=== PATIENT | male | born 1955 | race Caucasian/White ===

== ENCOUNTER 2018-05-26 06:17 | Day surgery (SDC) | payer OTHER ==
[2018-05-25 15:00] LABS: #Eosinphils 0.6 thou/uL (0.0-0.7); #Lymphocytes 2.1 thou/uL (1.20-3.40); #Monocytes 0.9 thou/uL (0.11-0.59); #Neutrophils 4.1 thou/uL (1.40-6.50); %Eosinophils 7.7 % (0.0-10.0); %Lymphocytes 27.3 % (21.0-51.0); %Monocytes 11.8 % (0.0-10.0); %Neutrophils 53.2 % (42.0-75.0); Hemoglobin 13.7 g/dL (14.0-18.0); Mean Corpuscular HGB CONC 34.8 g/dL (32.0-36.0); Mean Corpuscular Hemoglobin 31.4 pg (27.0-31.0); Mean Corpuscular Volume 90.2 fL (78.0-98.0); Mean Platelet Volume 7.6 fL (7.4-10.4); Platelet Count 235 thou/uL (130-400); RBC Distribution Width 11.3 % (11.5-14.5); Red Blood Cell (RBC) Count 4.38 mill/uL (4.70-6.10); White Blood Cell (WBC) Count 7.7 thou/uL (4.8-10.8)
[2018-05-25 15:18] LABS: Anion Gap 10 mmol/L (10-20); BUN (Urea Nitrogen) 15 mg/dL (8.4-25.7); Calc. Creatinine Clearance 0 mL/min (70-130); Calcium 9.9 mg/dL (7.8-10.44); Carbon Dioxide 29 mmol/L (23-31); Chloride 107 mmol/L (98-107); Estimated GFR-MDRD 71; Glucose 129 mg/dL (80-115); Potassium 4.2 mmol/L (3.5-5.1); Sodium 142 mmol/L (136-145)
[2018-05-26] MEDS ORDERED: Fentanyl 100 MCG/2 ML VIAL ONE ×2 (06:34→07:09)
[2018-05-26] MEDS ORDERED: Midazolam HCl 2 mg/2 ml Vial ONE ×2 (06:34→07:09)
[2018-05-26] MEDS ORDERED: Bupivacaine/Epinephrine 0.25% 30 ML VIAL ONE (06:45)
[2018-05-26] MEDS ORDERED: CEFAZOLIN 2 GM/50 ML BAG ONE (07:06)
[2018-05-26] MEDS ORDERED: traMADol HCl 50 MG TAB PO PRN ×2 (07:45)
[2018-05-26] MEDS ORDERED: Promethazine HCl 25 MG/ML VIAL IM PRN (07:45)
[2018-05-26] MEDS ORDERED: Zolpidem Tartrate 5 MG TAB PO PRN (07:45)
[2018-05-26] MEDS ORDERED: HYDROcodone/Acetaminophen 10/325 mg Tablet PO PRN ×2 (07:45)
[2018-05-26] MEDS ORDERED: Ropivacaine 0.2% 550 ML 550 ML NERVE BLCK SCH (07:45)
[2018-05-26] MEDS ORDERED: Ondansetron PF 4 MG/2 ML Vial IVP PRN (07:45)
[2018-05-26] MEDS ORDERED: Fentanyl 100 MCG/2 ML VIAL IV PRN (07:46)
[2018-05-26] MEDS ORDERED: Bupivacaine HCl 0.5%/Epinephrine 1:200,000/PF 30 ml Vial ONE (12:50)
[2018-05-26] MEDS ORDERED: Ropivacaine 0.2% HCl/PF (40 MG/20 ML VIAL) ONE (12:50)
[2018-05-26] MEDS ORDERED: Glycopyrrolate 0.2 MG/ML 5 ML SYRINGE ONE (13:05)
[2018-05-26] MEDS ORDERED: Ondansetron PF 4 MG/2 ML Vial ONE (13:05)
[2018-05-26] MEDS ORDERED: Ketorolac Tromethamine 30 MG/ML VIAL ONE (13:05)
[2018-05-26] MEDS ORDERED: Dexamethasone 20 MG/5 ML VIAL ONE (13:05)
[2018-05-26] MEDS ORDERED: Lidocaine 1% PF 5 ML VIAL ONE (13:05)
[2018-05-26] MEDS ORDERED: PROPOFOL 200 MG/20 ML VIAL ONE (13:05)
[2018-05-26] MEDS ORDERED: ePHEDrine/0.9% NaCl/PF SYRINGE 50 mg/10 ml ONE (13:05)
--- NOTE | 2018-05-26 15:49 | OP ---
DATE OF PROCEDURE: 05/26/2018 PREOPERATIVE DIAGNOSES: Left shoulder acromioclavicular joint arthritis, impingement, partial cuff tear, biceps tendon instability and pain. POSTOPERATIVE DIAGNOSES: Left shoulder acromioclavicular joint arthritis impingement, partial cuff tear, biceps tendon instability and pain. PROCEDURES PERFORMED: 1. Left shoulder arthroscopy with debridement of degenerative SLAP tear and partial undersurface rotator cuff tear. 2. Open biceps tenodesis. 3. Open distal clavicle excision. ETHNOGRAPHER: Victor Manuel Crawley PA-C ESTIMATED BLOOD LOSS: 100. COMPLICATIONS: None. ANESTHESIA: The patient did have a general anesthetic as well as a block. IMPLANTS: A 7 x 23 BioComposite Bio-Tenodesis screw. DISPOSITION: He did go to recovery room in stable condition. INDICATIONS FOR PROCEDURE: Dave is a 62-year-old male, who comes in complaining of chronic long-term left shoulder problems. He failed non-operative treatment, and at this time, wished to have surgery. DESCRIPTION OF PROCEDURE: After all appropriate consent forms were explained and signed, he was taken back to the operating room. At this time, he was given general anesthetic. Once anesthesia was appropriate, he was rolled into the right lateral decubitus position with all bony prominences well-padded. The axillary roll was placed underneath the right axilla and a guidry bag was inflated to hold him in this position. All bony prominences were well padded. The arm was taken through full range of motion and then suspended with 15 pounds in standard arthroscopic fashion. At this time, the left shoulder and upper extremity were then prepped and draped in standard surgical fashion. Bony anatomical landmarks were then drawn out and the subacromial space was infiltrated with Marcaine with epinephrine. Posterior portal was then established. Scope was placed into the shoulder joint. The anterior working portal was made and diagnostic arthroscopy commenced. Articular surface of the humeral head and glenoid were pristine. There were no loose bodies in the axillary pouch. Subscapularis was intact. Partial undersurface cuff tear of the supraspinatus which was debrided and really was 5% of the tendon, almost nothing. Remaining tendon looked good. The big problem was the anterior and anterosuperior labrum, which was completely detached. The frayed tissue was debrided with the shaver, and at this time, a was anteriorly, a needle was used to salde the biceps tendon and place a suture through the biceps. Scissors were then used to remove the tendon from off the superior labrum. This area was then debrided. Scope was then replaced into the subacromial space, lateral working portal was made. Copious bursa was removed from off the underlying cuff, cuff was found to be intact. Small bony decompression was performed using the SERFAS energy and the shaver, and the arthritic AC joint was found, cleaned out from the undersurface and needle was used to nahid this. At this time, the scope was removed, shoulder was drained. A 15 blade was used to incise obliquely over the AC joint down through skin. Bovie was used to coagulate any brisk venous bleeding. We then took full-thickness periosteal flaps anterior and posterior to expose the distal clavicle and a saw was then used to remove approximately 1 cm of the distal clavicle. Edges were smoothed off with a rasp and a small amount of bone wax was placed onto the bleeding cancellous bone. Area was then thoroughly irrigated and dried. There was a fair amount of venous bleeding, so this was coagulated. Once AC joint was cleaned out and all bleeding had been stopped, again we thoroughly irrigated and dried, we used multiple Vicryls to close our periosteal sleeve around the distal clavicle, 2-0 Vicryl to close the subcutaneous tissue. At this time, we turned our attention to the biceps tenodesis. A 15 blade was again used to incise down through skin, Bovie was used to coagulate any brisk venous bleeding. Deltoid fascia was then incised sharply and finger dissection was used in line with the deltoid fibers to get down to the underlying transverse humeral ligament. This was opened up, the biceps tendon was pulled out into the wound. At this time, we cleaned out our bicipital groove of significant amount of bleeding irritated tissue. We then sutured our tendon, we cut off the intraarticular portion, we placed our pin, reamed over top of this with 7 mm reamer, placed the biceps down into the hole and fixated this with a 7 x 23 BioComposite Bio-Tenodesis screw. Sutures were tied over top of this. Once that was done, we then thoroughly irrigated the wound, let it dry. We allowed the deltoid to close upon itself. A running Vicryl was used to close our deltoid fascia, 2-0 Vicryl and nylon sutures were used to close this incision as well as the other small incision and all small portals. At this time, a bulky sterile dressing was applied. The patient was awakened and he was taken to recovery room in stable condition. All counts were correct at the end of case and he received preoperative IV antibiotics. Job ID: [id number]
--- NOTE | 2018-05-26 18:57 | EKG ---
Test Reason : Blood Pressure : / mmHG Vent. Rate : 073 BPM Atrial Rate : 073 BPM P-R Int : 182 ms QRS Dur : 096 ms QT Int : 380 ms P-R-T Axes : 055 -32 019 degrees QTc Int : 418 ms Normal sinus rhythm Left axis deviation Voltage criteria for left ventricular hypertrophy Abnormal ECG No previous ECGs available Confirmed by Ritika GOEL ([id number]) on 05/26/2018 6:57:11 PM Referred By: DERRICK Confirmed By:Ritika GOEL
== END 2018-05-26 12:25 | disposition home or self-care (01) ==
LOC: SDC 06:17
PROVIDERS: ATTEND Orthopaedic Surgery
DX: M75.112 Incomplete rotator cuff tear or rupture of left shoulder, not specified as traumatic (principal); M19.012 Primary osteoarthritis, left shoulder; M75.42 Impingement syndrome of left shoulder; M25.312 Other instability, left shoulder; N52.9 Male erectile dysfunction, unspecified; Z86.010 Personal history of colon polyps; Z88.7 Allergy status to serum and vaccine; Z91.018 Allergy to other foods; Z79.899 Other long term (current) drug therapy; Z98.890 Other specified postprocedural states
CPT/HCPCS: 80048; 85025; 93005; 93010; A4306; C1713; J0670; J1100; J1885; J2001; J2250; J2405; J2704; J2795; J3010

== ENCOUNTER 2019-03-07 16:27 | Outpatient (CLI) | payer OTHER ==
--- NOTE | 2019-03-07 16:52 | ULT ---
EXAM: RIGHT LOWER EXTREMITY DOPPLER VENOUS ULTRASOUND PROVIDED CLINICAL HISTORY: Right lower extremity pitting edema TECHNIQUE: Grayscale and color Doppler sonography with spectral analysis was performed of the right common femor al, femoral, popliteal, posterior tibial, greater saphenous and profunda femoral veins. FINDINGS: There is partially occlusive thrombus seen within the mid right superficial femoral vein. T he remaining deep venous segments of the right lower extremity demonstrate normal compression, flow and augmentation. IMPRESSION: Partially occlusive thrombus seen within the right mid superficial femoral vein. Findings called to Nguyen Barney's answering service at 4:48 PM on March 07, 2019.
== END 2019-03-07 16:28 | disposition home or self-care (01) ==
LOC: SCSCT 16:27
PROVIDERS: ATTEND Orthopaedic Surgery
DX: R60.0 Localized edema (principal); I82.811 Embolism and thrombosis of superficial veins of right lower extremity

== ENCOUNTER 2019-03-08 12:59 | Outpatient (CLI) | payer OTHER ==
--- NOTE | 2019-03-08 14:10 | CT ---
CT OF HEAD NONCONTRAST: INDICATION: Injury. FINDINGS: The ventricular system is normal in size. There is no acute intracranial hemorrhage, mass effect, or midline shift. Calvarium is intact. No acute fluid level of the paranasal sinus. IMPRESSION: No acute intracranial hemorrhage or mass effect. POS: C
== END 2019-03-08 13:00 | disposition home or self-care (01) ==
LOC: CT 12:59
PROVIDERS: ATTEND Orthopaedic Surgery
DX: S09.90XA Unspecified injury of head, initial encounter (principal)
CPT/HCPCS: 70450

== ENCOUNTER 2019-11-05 07:13 | Inpatient (IN) | payer MEDICARE, OTHER ==
[2019-11-05 08:04] LABS: #Basophils 0.1 thou/uL (0.0-0.2); #Eosinphils 0.4 thou/uL (0.0-0.7); #Lymphocytes 3.4 thou/uL (1.20-3.40); #Monocytes 1.5 thou/uL (0.11-0.59); %Basophils 0.6 % (0.0-1.0); %Eosinophils 2.6 % (0.0-10.0); %Lymphocytes 23.7 % (21.0-51.0); %Monocytes 10.1 % (0.0-10.0); %Neutrophils 62.9 % (42.0-75.0); Hemoglobin 14.7 g/dL (14.0-18.0); Mean Corpuscular HGB CONC 33.2 g/dL (32.0-36.0); Mean Corpuscular Hemoglobin 30.5 pg (27.0-31.0); Mean Corpuscular Volume 91.8 fL (78.0-98.0); Mean Platelet Volume 8.1 fL (7.4-10.4); Platelet Count 187 thou/uL (130-400); RBC Distribution Width 11.9 % (11.5-14.5); Red Blood Cell (RBC) Count 4.84 mill/uL (4.70-6.10); White Blood Cell (WBC) Count 14.4 thou/uL (4.8-10.8)
--- NOTE | 2019-11-05 08:06 | RAD ---
Chest one view HISTORY: Dyspnea. Chest pain. FINDINGS: Cardiac silhouette is magnified by projection. Pulmonary vasculature is unremarkable. Mediastinum is midline. No lobar consolidation or evidence of pneumothorax. Postoperative changes of the right shoulder are now evident. Subtle oval well-circumscribed lucency w ith sclerotic margins within the right humeral neck is stable compared to shoulder radiograph from 2015. vehicle monitor technician leads overlie the chest. IMPRESSION : No active cardiopulmonary abnormalities are demonstrated.
[2019-11-05 08:39] LABS: ALT (SGPT) 27 U/L (8-55); AST (SGOT) 23 U/L (5-34); Alkaline Phosphatase 103 U/L (40-110); Anion Gap 15 mmol/L (10-20); BUN (Urea Nitrogen) 20 mg/dL (8.4-25.7); Bilirubin, Total 1.2 mg/dL (0.2-1.2); CK (CPK) 67 U/L (30-200); Calc. Creatinine Clearance 0 mL/min (70-130); Calcium 9.4 mg/dL (7.8-10.44); Carbon Dioxide 21 mmol/L (23-31); Chloride 106 mmol/L (98-107); Estimated GFR-MDRD 57; Globulin 3.7 g/dL (2.4-3.5); Glucose 221 mg/dL (80-115); Lipase Less than 4 U/L (8-78); Potassium 4.2 mmol/L (3.5-5.1); Protein, Total 7.7 g/dL (5.8-8.1); Sodium 138 mmol/L (136-145)
[2019-11-05 08:53] LABS: Band 2 % (5-11); Eosinophils 2 % (0-10); Lymphocytes 20 % (21-51); Monocytes 12 % (0-10); Neutrophil 63 % (42-75)
[2019-11-05 08:54] LABS: MDiff Complete? YES
[2019-11-05 09:00] LABS: CKMB 3.4 ng/mL (0-6.6)
[2019-11-05] MEDS ORDERED: Aspirin Chewable 81 MG TAB ONE (09:11)
[2019-11-05] MEDS ORDERED: Enoxaparin Sodium 100 MG/ML SYRINGE ONE (09:12)
--- NOTE | 2019-11-05 09:30 | CT ---
CT PULMONARY ANGIOGRAM WITH IV CONTRAST AND 3D POSTPROCESSING: HISTORY: Shortness of breath and chest pain. FINDINGS: There is good contrast opacification in the pulmonary arterial vasculature with numerous filling defe cts consistent with pulmonary embolism in the pulmonary arteries and their branches bilaterally. The re is associated flattening of the intraventricular septum indicative of right ventricular strain. N o pleural or pericardial effusions are seen. There are vascular calcifications without evidence of aneurysmal dilatation of the thoracic aorta. N o pneumothoraces, focal areas of consolidation, or lung masses are seen. There are degenerative lee ges in the spine. IMPRESSION: Bilateral pulmonary emboli with right ventricular strain. Discussed over the telephone with ER physician, Dr. Karan Elise, at 9:10 a.m. ADEOLA CLAROS
[2019-11-05] MEDS ORDERED: Iopamidol-370 76% 500 ML 1 ML ONE (09:46)
--- NOTE | 2019-11-05 09:58 | PDOC.FPRHP ---
- History of Present Illness Chief Complaint: SOB History of Present Illness: Patient is a 63 y/o male with a PMH significant for recent DVT of his RLE that was treated with 6M of Eliquis (DC'd within the past 2M), and HTN who presents to the ED for evaluation of 3D of SOB. Patient states that he is currently training to cross the [facility] on foot and is walking 15-20 miles per day with a weighted rucksack, and noticed that he began to feel acutely SOB. This was not relieved by rest or adequate PO hydration, and was not accompanied by any other symptoms such as CP, N/V or pre-syncope. Patient states that he returned home and rested for 2D, but continued to feel SOB, hence prompting his presentation to the ED. ROS(-): Fevers, chills, visual disturbances, new or worsening cough, CP, PND, peripheral edema, SOB, N/V, ABD pain, dysuria, hematuria, bloody stools, recent surgeries, traumatic events or steroid use. Patient states that his last colonoscopy was several years prior and that it was essentially WNL. ED Course: CTA Chest: Bilateral PEs w/ Right Ventricular Strain CXR: No Acute Cardiopulmonary Findings Patient was administered 1L NS and Therapeutic Lovenox at 1 mg/kg. - Allergies/Adverse Reactions Allergies Allergy/AdvReac Type Severity Reaction Status Date / Time influenza virus vaccine, Allergy Verified 09/09/19 03:23 specific [influenza virus vacc,specific] lactase [From Dairy Aid] Allergy Verified 09/09/19 03:23 - Home Medications Medication Instructions Recorded Confirmed Type Amitriptyline HCl 2 tab PO HS 11/05/19 11/05/19 History Aspirin [Ecotrin] 81 mg PO BID 11/05/19 11/05/19 History Losartan Potassium 1 tab PO BID 11/05/19 11/05/19 History - History PMHx: Recent Unprovoked DVT, HTN, IBS PSHx: Bilateral Shoulder Replacement FHx: Mother (Cancer, PE), no known Coagulopathies Social: 1-2 EtOH Servings per Month, Patient denies Tobacco Abuse and Drug Abuse Code: DNAR - Review of Systems General: denies: fever/chills, weight/appetite/sleep changes, fatigue Eyes: denies: vision changes Respiratory: reports: shortness of breath. denies: cough Cardiovascular: denies: chest pain, palpitation, edema, paroxysmal nocturnal dyspnea Gastrointestinal: reports: diarrhea. denies: nausea, vomiting, GI bleeding Genitourinary: denies: dysuria, discharge Skin: denies: rashes, lesions Neurological: denies: syncope - Vital signs BP: [143/102] HR: [94] RR: [22] Tmax: [97.8] Pox: [95]% on [RA] - Physical Exam Constitutional: NAD, awake, alert and oriented, well developed HEENT: normocephalic and atraumatic, PERRLA, EOMI, conjunctiva clear, no scleral icterus, grossly normal vision, grossly normal hearing, normal nasal mucosa, MMM Neck: supple, FROM, trachea midline, no LAD, no JVD, no bruits Chest: no-tender to palpation, no lesions Heart: RRR, normal S1/S2, no murmurs/rubs/gallops, pulses present, no edema Lungs: CTAB, no respiratory distress, good air movement, no rales/rhonchi, no wheezing, no retractions Abdomen: soft, non-tender, bowel sounds present, no masses/distention, no hernias Musculoskeletal: normal structure, ROM grossly normal Neurological: no focal deficit Skin: no rash/lesions, no jaundice Heme/Lymphatic: no unusual bruising or bleeding, no purpura, no petechia, no LAD Psychiatric: normal mood and affect, good judgment and insight, intact recent and remote memory FMR H&P: Results - Labs Result Diagrams: 11/05/19 07:50 11/05/19 07:50 Lab results: WBC 14.4 thou/uL (4.8-10.8) H 11/05/19 07:50 Hgb 14.7 g/dL (14.0-18.0) 11/05/19 07:50 Hct 44.4 % (42.0-52.0) 11/05/19 07:50 MCV 91.8 fL (78.0-98.0) 11/05/19 07:50 Plt Count 187 thou/uL (130-400) 11/05/19 07:50 Neutrophils % 62.9 % (42.0-75.0) 11/05/19 07:50 Band Neuts % (Manual) 2 % (5-11) L 11/05/19 07:50 Sodium 138 mmol/L (136-145) 11/05/19 07:50 Potassium 4.2 mmol/L (3.5-5.1) 11/05/19 07:50 Chloride 106 mmol/L (98-107) 11/05/19 07:50 Carbon Dioxide 21 mmol/L (23-31) L 11/05/19 07:50 BUN 20 mg/dL (8.4-25.7) 11/05/19 07:50 Creatinine 1.26 mg/dL (0.7-1.3) 11/05/19 07:50 Glucose 221 mg/dL (80-115) H 11/05/19 07:50 Calcium 9.4 mg/dL (7.8-10.44) 11/05/19 07:50 Total Bilirubin 1.2 mg/dL (0.2-1.2) 11/05/19 07:50 AST 23 U/L (5-34) 11/05/19 07:50 ALT 27 U/L (8-55) 11/05/19 07:50 Alkaline Phosphatase 103 U/L (40-110) 11/05/19 07:50 Creatine Kinase 67 U/L (30-200) 11/05/19 07:50 CK-MB (CK-2) 3.4 ng/mL (0-6.6) 11/05/19 07:51 B-Natriuretic Peptide 588.4 pg/mL (0-100) H 11/05/19 07:50 Serum Total Protein 7.7 g/dL (5.8-8.1) 11/05/19 07:50 Albumin 4.0 g/dL (3.4-4.8) 11/05/19 07:50 Lipase Less than 4 U/L (8-78) L 11/05/19 07:50 - Radiology Interpretation Other Status: image reviewed by me (CTA Chest: Bilateral PEs w/ Right Ventricular Strain), report reviewed by me FMR H&P: A/P - Problem List (1) Pulmonary emboli Current Visit: Yes Status: Acute Code(s): I26.99 - OTHER PULMONARY EMBOLISM WITHOUT ACUTE COR PULMONALE (2) HTN (hypertension) Current Visit: Yes Status: Acute Code(s): I10 - ESSENTIAL (PRIMARY) HYPERTENSION (3) Diabetes Current Visit: Yes Status: Acute Code(s): E11.9 - TYPE 2 DIABETES MELLITUS WITHOUT COMPLICATIONS (4) Irritable bowel syndrome Current Visit: Yes Status: Acute (5) History of DVT (deep vein thrombosis) Current Visit: Yes Status: Acute Code(s): Z86.718 - PERSONAL HISTORY OF OTHER VENOUS THROMBOSIS AND EMBOLISM - Plan Patient is a 63 y/o male with a PMH significant for recent unprovoked DVT and HTN who presents to the ED for evaluation of SOB. 1. Bilateral Pulmonary Emboli, Unprovoked -SOB and history of recent cessation of anticoagulation regimen is concerning -CTA Chest: Bilateral PEs w/ Right Heart Strain -s/p Lovenox 1 mg/kg - will continue BID -O2Sat currently stable w/o need for supplemental O2 -Dr. Del Rosario (Pulm): Consulted from ED, recs appreciated 2. HTN -BP: 143/102 - not currently at goal -Will restart patient's home medication regimen and consider titration if necessary -Hydralazine 5 mg PO PRN -Trops: 0.245 - will continue to trend -BNP: > 500 w/o known diagnosis of CHF -TTE: Pending 3. DM -Random Glucose on admission was >200 -Patient did not endorse DM during initial evaluation, no recent steroid use or infection -HgA1c: Pending -Fasting Lipid Panel: Pending -Mild Sliding Scale Insulin -ACHS Glucose Checks -Hypoglycemia Protocol 4. IBS -Will restart patient's home medication regimen PCP: CC Code: DNAR Diet: CC (1800 Calories) Activity: Ambulate w/ Assist VTE PPx: Lovenox 1 mg/kg BID Dispo: Patient is currently stable and admitted to the Telemetry Floor for ongoing treatment of bilateral PEs. Will continue Lovenox as per above and coordinate as needed with Pulm, recs appreciated. Maintain BP goals and titrate home medication regimen as needed. Await results specific to DM as per above and ensure adequate control of blood glucose. Expected LOS >48H. FMR H&P: Upper Level - Plan Date/Time: 11/05/19 0958 Carline Hernandez, have evaluated this patient and agree with findings/plan as outlined by public relations intern resident. Pertinent changes/additions are listed here. 63 yo M with SOB starting yesterday when working out. Has hx of DVT in which he was on eliquis for 6 mos and taken off of it 2 mos ago. No chest pain, n/v, diaphoresis. Mother of PE. No other family hx of coagulopathies. No other symptoms. No leg swelling, recent travel, non smoker. CTA showed b/l PE with right heart strain, hemodynamically stable. Pulmonology consulted and started on therapeutic lovenox. No recent unintentional weight loss, up to date on cancer screenings including colonoscopies which have shown polyps. VS: 96% on RA, 89bpm, 142/102, RR 21 PE: NAD, Lungs CTAB, legs no swelling or tenderness to palpation CTA: B/L PE with R heart strain A/P 1. Bilateral pulmonary emboli -CTA: R heart strain -Pulm consulted, started on . lovenox -Admit to tele -W/ hx of DVT will likely need prison anticoagulation -B/L venous doppler 2. Indeterminate troponin, likely 2/2 demand -0.2, isolated T wave inversion -No chest pain, trend 3. Elevated BNP -500, euvolemic -Could be due to acute strain from PE -TTE to further assess since will need to obtain for PE 4. Hyperglycemia -Glucose 200s, check A1c, sliding scale admit: tele/obs pcp: city call abx: none fluids: none Discussed w/ Dr. Fernandez Addendum - Attending - Attending Attestation Date/Time: 11/05/19 8855 I personally evaluated the patient and discussed the management with Dr. Lakhani I agree with the History, Examination, Assessment and Plan documented above with any addition or exceptions noted below - 63 yo gentleman with h/o DVT 8 months ago (treated with eliquis x 6 months; stopped 2 months ago), HTN, and IBS presented c/o SOB for last 3 days. Denies any chest pain or palpitations. Denies any trauma to extremities, recent travel (long car rides/plane trips). PMH/PSH/Meds/SH reviewed and agree with resident's documentation. Afebrile VSS. Exam repeated by me and agree with resident's findings. CT chest- bilateral PEs with possible right heart strain. A/P: 1) Bilateral PEs- second episode of VTE disease. Started on lovenox- most likely can convert to eliquis in future. Will check echo as well as lower extremity dopplers. Will also order hypercoagulable panel. 2) Hyperglycemia- will check HgbA1c; continue to monitor.
[2019-11-05] MEDS ORDERED: Ondansetron PF 4 MG/2 ML Vial IVP PRN (10:53)
[2019-11-05] MEDS ORDERED: Ondansetron ODT 4 MG TAB PO PRN (10:54)
[2019-11-05] MEDS: Sodium Chloride 0.9% 1,000 ML IV SCH ×2 (11:25→14:25)
[2019-11-05] MEDS ORDERED: Acetaminophen 325 MG TAB PO PRN (11:27)
[2019-11-05] MEDS ORDERED: HumaLOG 300 UNITS/3 ML VIAL SC PRN (11:27)
[2019-11-05] MEDS ORDERED: Dextrose 5% in Water 1,000 ML IV PRN (11:27)
[2019-11-05] MEDS ORDERED: Dextrose 50% Abboject 50 ML SYRINGE SLOW IVP PRN (11:27)
[2019-11-05] MEDS ORDERED: hydrALAZINE 10 MG TAB PO PRN (11:43)
[2019-11-05 12:07] VITALS: BMI 31.8
[2019-11-05 12:13] LABS: Troponin I 0.223 ng/mL (< 0.028)
[2019-11-05 15:05] LABS: Troponin I 0.188 ng/mL (< 0.028)
--- NOTE | 2019-11-05 15:31 | ULT ---
Venous duplex sonogram bilateral lower extremity HISTORY: Bilateral leg pain and edema. Pulmonary emboli. FINDINGS: Each common femoral vein and greater saphenous junction were evaluated along with each femo ral, deep femoral, popliteal, and posterior tibial vein. Internal thrombus with lack of compressibility involve the right femoral vein and left popliteal vein . There is diminished color and spectral Doppler flow. Good compression and augmentation elsewhere. No other areas of clot evident. IMPRESSION : Incompletely occlusive thrombus within the right femoral vein and left popliteal vein.
[2019-11-05] MEDS: Aspirin 81 mg Enteric Coated Tablet PO SCH (20:04)
[2019-11-05] MEDS: Losartan 25 MG TAB PO SCH (20:04)
[2019-11-05] MEDS: Amitriptyline HCl 10 MG TAB PO SCH (20:04)
[2019-11-05] MEDS: Enoxaparin Sodium 100 MG/ML SYRINGE SC SCH (20:04)
[2019-11-05] MEDS: Famotidine 20 MG TAB PO SCH ×2 (20:05→20:07)
[2019-11-05] MEDS ORDERED: Enoxaparin Sodium 80 MG/0.8 ML SYRINGE SC SCH (21:00)
--- NOTE | 2019-11-06 06:28 | PDOC.FM ---
- Subjective Subjective: Patient was resting comfortably in bed at the time of evaluation, and denied any acute overnight events. - Objective Vital Signs & Weight: Vital Signs (12 hours) Temp Pulse Resp BP Pulse Ox 11/06/19 03:21 97.8 F 83 18 122/83 95 11/05/19 19:05 98.0 F 86 16 129/88 96 Weight Weight 100.698 kg I&O: 11/04/19 11/05/19 11/06/19 06:59 06:59 06:59 Intake Total 1235 Balance 1235 Result Diagrams: 11/06/19 07:21 11/05/19 07:50 Phys Exam - Physical Examination Constitutional: NAD HEENT: PERRLA, moist MMs, sclera anicteric, oral pharynx no lesions Neck: no nodes, supple, full ROM Respiratory: no wheezing, no rales, no rhonchi, clear to auscultation bilateral Cardiovascular: RRR, no significant murmur, no rub Gastrointestinal: soft, no distention, positive bowel sounds Musculoskeletal: no edema, pulses present Neurological: moves all 4 limbs Psychiatric: normal affect Dx/Plan (1) Pulmonary emboli Code(s): I26.99 - OTHER PULMONARY EMBOLISM WITHOUT ACUTE COR PULMONALE Status : Acute (2) HTN (hypertension) Code(s): I10 - ESSENTIAL (PRIMARY) HYPERTENSION Status: Acute (3) Diabetes Code(s): E11.9 - TYPE 2 DIABETES MELLITUS WITHOUT COMPLICATIONS Status: Acute (4) Irritable bowel syndrome Status: Acute (5) History of DVT (deep vein thrombosis) Code(s): Z86.718 - PERSONAL HISTORY OF OTHER VENOUS THROMBOSIS AND EMBOLISM Status: Acute - Plan Plan: Patient is a 63 y/o male with a PMH significant for recent unprovoked DVT and HTN who presents to the ED for evaluation of SOB. 1. Bilateral Pulmonary Emboli, Unprovoked -SOB and history of recent cessation of anticoagulation regimen is concerning -CTA Chest: Bilateral PEs w/ Right Heart Strain -s/p Lovenox 1 mg/kg - will continue BID and plan for transition to NOAC -O2Sat currently stable w/o need for supplemental O2 -Dr. Del Rosario (Pulm): Consulted from ED, recs appreciated 2. HTN -BP: 122/83 - currently at goal -Continue home medication regimen -Hydralazine 5 mg PO PRN -Trops: 0.245, 0.223, 0.188 -BNP: > 500 w/o known diagnosis of CHF -TTE: EF(60-65%), Right Heart Strain, PA Pressure > 70 mmHg 3. DM -Random Glucose on admission was >200 -Patient did not endorse DM during initial evaluation, no recent steroid use or infection -HgA1c: 8.0 -Fasting Lipid Panel: Pending -Mild Sliding Scale Insulin -ACHS Glucose Checks -Hypoglycemia Protocol -Per Nursing, patient refused Insulin - will reengage on the importance of medical management of DM 4. IBS -Will restart patient's home medication regimen PCP: CC Code: EMELI Diet: CC (1800 Calories) Activity: Ambulate w/ Assist VTE PPx: Lovenox 1 mg/kg BID Dispo: Patient is currently stable and admitted to the Telemetry Floor for ongoing treatment of bilateral PEs. Will continue Lovenox as per above and coordinate as needed with Pulm, recs appreciated, and plan for transition to NOAC. Maintain BP goals and titrate home medication regimen as needed. Continue to encourage patient to take control of DM management as per above. Expected LOS <48H. Addendum - Attending - Attending Attestation Date/Time: 11/06/19 4130 I personally evaluated the patient and discussed the management with Dr. Lakhani I agree with the History, Examination, Assessment and Plan documented above with any addition or exceptions noted below. 63 yo M with bilateral pulmonary emboli being treated with therapeutic lovenox. Was previously on Eliquis for unprovoked DVT. Planning to transition to eliquis , SANAZ to confirm availability of eliquis for him outpatient. He refuses diabetic medications despite counseling. RA Delaney
[2019-11-06 07:32] LABS: #Basophils 0.1 thou/uL (0.0-0.2); #Eosinphils 0.5 thou/uL (0.0-0.7); #Lymphocytes 3.5 thou/uL (1.20-3.40); #Monocytes 1.3 thou/uL (0.11-0.59); #Neutrophils 6.3 thou/uL (1.40-6.50); %Basophils 1.1 % (0.0-1.0); %Eosinophils 4.4 % (0.0-10.0); %Lymphocytes 29.8 % (21.0-51.0); %Monocytes 10.9 % (0.0-10.0); %Neutrophils 53.7 % (42.0-75.0); Hemoglobin 13.6 g/dL (14.0-18.0); Mean Corpuscular HGB CONC 32.8 g/dL (32.0-36.0); Mean Corpuscular Hemoglobin 30.5 pg (27.0-31.0); Mean Corpuscular Volume 92.9 fL (78.0-98.0); Platelet Count 167 thou/uL (130-400); Red Blood Cell (RBC) Count 4.46 mill/uL (4.70-6.10); White Blood Cell (WBC) Count 11.7 thou/uL (4.8-10.8)
[2019-11-06 07:43] LABS: INR-International Normal Ratio 1.1; PTT 35.9 SEC (22.9-36.1); Prothrombin Time 14.5 sec (12.0-14.7)
[2019-11-06 07:52] LABS: Cardiac Risk 4.2 (Less than 4.5)
[2019-11-06 07:55] LABS: INR-International Normal Ratio 1.1; Prothrombin Time 14.1 sec (12.0-14.7)
[2019-11-06 07:56] LABS: PTT 33.4 SEC (22.9-36.1)
[2019-11-06] MEDS: metFORMIN 500 MG TAB PO SCH (08:07)
[2019-11-06] MEDS: Aspirin 81 mg Enteric Coated Tablet PO SCH ×2 (08:07→20:57)
[2019-11-06] MEDS: Losartan 25 MG TAB PO SCH ×2 (08:07→20:57)
[2019-11-06] MEDS: Enoxaparin Sodium 100 MG/ML SYRINGE SC SCH ×2 (08:07→20:58)
[2019-11-06] MEDS: Famotidine 20 MG TAB PO SCH ×2 (08:08→20:57)
[2019-11-06 08:10] LABS: D-Dimer Test 7.85 *mcg/mL (0.27-0.43)
[2019-11-06 09:45] LABS: HEX PHOS LA Tube 2 38.2 SEC; Hexagonal Phospholipid Neut 5.8 SEC (0-8.0)
[2019-11-06 13:12] LABS: Protein C Activity 74 % (78-152)
[2019-11-06 17:41] LABS: Hemoglobin 14.8 g/dL (14.0-18.0); Platelet Count 178 thou/uL (130-400)
[2019-11-06 18:49] LABS: Cardiolipin IgM Ab 1.2 MPL-U/mL (<10 Negative); EliA APS New Method **** NEW METHOD ****
[2019-11-06] MEDS: Amitriptyline HCl 10 MG TAB PO SCH (20:56)
--- NOTE | 2019-11-06 22:52 | CON ---
DATE OF CONSULTATION: HISTORY OF PRESENT ILLNESS: Dave Thomson is a 63-year-old male, who has had a DVT in the past on the right discovered by Dr. Barney. His anticoagulants were discontinued after six months. [facility] and says he started noticing he is getting severely dyspneic. He presented to the hospital yesterday and was found to have bilateral thromboembolic events. I was consulted to assist in his management. He also had a clot in his right femoral vein that was not occlusive and a popliteal vein clot on the left. He is on Lovenox. PAST MEDICAL HISTORY: He worked as a breakfast and room attendant here forever, just retired. He is up to date on his cancer screening. Past medical history is remarkable for hypertension, irritable bowel, shoulder replacements, degenerative arthritis of his knees. FAMILY HISTORY: His mother of pulmonary embolism, but had four malignancies. SOCIAL HISTORY: He drinks occasionally. He does not smoke. REVIEW OF SYSTEMS: Ten-point review of systems otherwise negative. PHYSICAL EXAMINATION: GENERAL: He is pleasant, in no distress. VITAL SIGNS: Afebrile. Heart rate is 84, respiratory rate 16, oximetry is 93 to 94 on room air, blood pressure 136/92. HEAD AND NECK: Unremarkable. LUNGS: Clear. HEART: Regular rhythm. S1 and S2 are normal. ABDOMEN: Soft and nontender. EXTREMITIES: Without clubbing, cyanosis, or edema. LABS: Been reviewed. White count 11.7, hemoglobin 13.6, platelets 167. IMPRESSION: 1. Thromboembolic disease. 2. New diabetes. He probably can be managed with metformin alone as he has lost 15 pounds recently and plans to continue to lose weight. Switch him to Eliquis in the morning. Job ID: [id number]
[2019-11-07] MEDS: Amitriptyline HCl 10 MG TAB PO SCH (00:59)
[2019-11-07 04:15] LABS: #Basophils 0.1 thou/uL (0.0-0.2); #Eosinphils 0.4 thou/uL (0.0-0.7); #Lymphocytes 3.6 thou/uL (1.20-3.40); #Monocytes 1.7 thou/uL (0.11-0.59); #Neutrophils 8.7 thou/uL (1.40-6.50); %Basophils 0.6 % (0.0-1.0); %Eosinophils 2.6 % (0.0-10.0); %Lymphocytes 25.2 % (21.0-51.0); %Monocytes 11.9 % (0.0-10.0); %Neutrophils 59.8 % (42.0-75.0); Hemoglobin 14.7 g/dL (14.0-18.0); Mean Corpuscular HGB CONC 33.5 g/dL (32.0-36.0); Mean Corpuscular Hemoglobin 31.1 pg (27.0-31.0); Mean Corpuscular Volume 92.9 fL (78.0-98.0); Mean Platelet Volume 9.3 fL (7.4-10.4); Platelet Count 183 thou/uL (130-400); RBC Distribution Width 11.9 % (11.5-14.5); Red Blood Cell (RBC) Count 4.72 mill/uL (4.70-6.10); White Blood Cell (WBC) Count 14.5 thou/uL (4.8-10.8)
--- NOTE | 2019-11-07 07:12 | PDOC.FM ---
- Subjective Subjective: Patient was resting comfortably at the time of evaluation and denied any acute overnight events, despite poor sleep. - Objective Vital Signs & Weight: Vital Signs (12 hours) Temp Pulse Resp BP BP BP Pulse Ox 11/07/19 03:19 99.4 F 87 18 155/92 H 92 L 11/06/19 23:20 133/88 11/06/19 20:00 97 11/06/19 19:11 98.6 F 108 H 20 175/104 H 95 Weight Weight 100.698 kg I&O: 11/05/19 11/06/19 11/07/19 06:59 06:59 06:59 Intake Total 1235 300 Output Total 1450 Balance 1235 -1150 Result Diagrams: 11/07/19 03:43 11/06/19 17:33 Phys Exam - Physical Examination Constitutional: NAD HEENT: moist MMs, sclera anicteric, oral pharynx no lesions Neck: supple, full ROM Respiratory: no wheezing, no rales, no rhonchi, clear to auscultation bilateral Cardiovascular: RRR, no significant murmur, no rub Gastrointestinal: soft, non-tender, no distention, positive bowel sounds Musculoskeletal: no edema, pulses present Keyur(-) Neurological: non-focal, moves all 4 limbs Psychiatric: normal affect, A&O x 3 Skin: no rash Dx/Plan (1) Pulmonary emboli Code(s): I26.99 - OTHER PULMONARY EMBOLISM WITHOUT ACUTE COR PULMONALE Status : Acute (2) HTN (hypertension) Code(s): I10 - ESSENTIAL (PRIMARY) HYPERTENSION Status: Acute (3) Diabetes Code(s): E11.9 - TYPE 2 DIABETES MELLITUS WITHOUT COMPLICATIONS Status: Acute (4) Irritable bowel syndrome Status: Acute (5) History of DVT (deep vein thrombosis) Code(s): Z86.718 - PERSONAL HISTORY OF OTHER VENOUS THROMBOSIS AND EMBOLISM Status: Acute - Plan Plan: Patient is a 63 y/o male with a PMH significant for recent unprovoked DVT and HTN who presents to the ED for evaluation of SOB. 1. Bilateral Pulmonary Emboli, Unprovoked -SOB and history of recent cessation of anticoagulation regimen is concerning -CTA Chest: Bilateral PEs w/ Right Heart Strain -s/p Lovenox 1 mg/kg - will transition to Eliquis 10 mg PO BID for 7 days -Case Management: Consulted, will assist with obtaining medication as patient does not have insurance -Patient is a but does not currently have [facility] benefits - will provide with contact info for local [facility] rep -O2Sat currently stable w/o need for supplemental O2 -Dr. Del Rosario (Pulm): Consulted from ED, recs appreciated - will follow patient following DC -Factor VIII: 279 (High) - will require additional investigation as an outpatient w/ HemeOnc 2. Bilateral DVTs, Unprovoked -Venogram: Thrombus located in Right Femoral Vein and Left Popliteal Vein -See #1 2. HTN -BP: Several elevate pressures overnight - currently at goal -Continue home medication regimen -Hydralazine 5 mg PO PRN -Trops: 0.245, 0.223, 0.188 -BNP: > 500 w/o known diagnosis of CHF -TTE: EF(60-65%), Right Heart Strain, PA Pressure > 70 mmHg 3. DM -Random Glucose on admission was >200 -Patient did not endorse DM during initial evaluation, no recent steroid use or infection -HgA1c: 8.0 -Fasting Lipid Panel: WNL -Mild Sliding Scale Insulin - Refused -Metformin 500 mg PO daily - Refused -ACHS Glucose Checks -Hypoglycemia Protocol -Will reengage on the importance of medical management of DM 4. IBS -Will restart patient's home medication regimen PCP: CC Code: EMELI Diet: CC (1800 Calories) Activity: Ambulate w/ Assist VTE PPx: Eliquis 10 mg PO BID Dispo: Patient is currently stable and admitted to the Telemetry Floor for ongoing treatment of bilateral PEs and recently discovered DVTs. Will continue Eliquis as per above and coordinate as needed with Pulm, recs appreciated. Elevated Factor VIII will likely require further investigation as an outpatient. Continue to encourage patient to take control of DM management as per above. Will likely plan for DC today pending ability to obtain Eliquis. Expected LOS <24H. Addendum - Attending - Attending Attestation Date/Time: 11/07/19 [id number] I personally evaluated the patient and discussed the management with Dr. Lakhani I agree with the History, Examination, Assessment and Plan documented above with any addition or exceptions noted below. 63 yo M with bilateral pulmonary emboli and DVT. Transitioned to eliquis, confirmed he will have access to this medication outpatient. Factor VIII level elevated, will have patient follow up with Heme/Onc. Will need ariadne indefinitely. RA Delaney
[2019-11-07] MEDS: Losartan 25 MG TAB PO SCH (07:55)
[2019-11-07] MEDS: metFORMIN 500 MG TAB PO SCH (07:55)
[2019-11-07] MEDS: Aspirin 81 mg Enteric Coated Tablet PO SCH (07:55)
[2019-11-07] MEDS: Famotidine 20 MG TAB PO SCH (07:55)
[2019-11-07] MEDS ORDERED: Apixaban 5 MG TAB PO SCH (09:00)
[2019-11-07 11:14] VITALS: BP 150/99; TEMP 98.1
--- NOTE | 2019-11-07 16:15 | EKG ---
Test Reason : Blood Pressure : / mmHG Vent. Rate : 103 BPM Atrial Rate : 103 BPM P-R Int : 166 ms QRS Dur : 122 ms QT Int : 372 ms P-R-T Axes : 011 -36 -19 degrees QTc Int : 487 ms Sinus tachycardia Left axis deviation Right bundle branch block T wave abnormality, consider lateral ischemia Abnormal ECG Confirmed by JF ROCA, SUSANNE ([id number]), news editor BROOKS SINGLETARY ([id number]) on 11/07/2019 4:14:59 PM Referred By: Confirmed By:SUSANNE RHOADES MD
--- NOTE | 2019-11-08 03:20 | DIS ---
DATE OF ADMISSION: 11/05/2019 DATE OF DISCHARGE: 11/07/2019 RESIDENT: Percy Lakhani MD ADMITTING ATTENDING: Ad Delaney MD DISCHARGE ATTENDING: Ad Delaney MD CONSULTS: Albert Del Rosario MD, Pulmonology. PROCEDURES PERFORMED: Chest x-ray revealing no acute cardiopulmonary abnormalities. Chest thorax CTA revealing bilateral pulmonary emboli with right ventricular strain. Venogram revealing incompletely occlusive thrombus in the right femoral vein and left popliteal vein. Echocardiogram revealing normal left ventricle size. Ejection fraction of approximately 60% to 65%. Paradoxical septal motion compatible with right heart overload. Severely enlarged right ventricular activity. Pulmonary artery pressure measured at approximately 70 mmHg. PRIMARY DIAGNOSIS: Bilateral pulmonary emboli. SECONDARY DIAGNOSES: Bilateral deep venous thromboses, type 2 diabetes newly diagnosed, hypertension, irritable bowel syndrome. DISCHARGE MEDICATIONS: Eliquis 10 mg p.o. b.i.d. for seven days, followed by Eliquis 5 mg p.o. b.i.d. indefinitely until the patient could be evaluated by either his poiser or primary care physician in order to determine an adequate time to discontinue subsequent anticoagulation, metformin 500 mg p.o. daily. DISCONTINUED MEDICATIONS: 1. Aspirin 81 mg p.o. b.i.d. 2. Lovenox therapeutic dosing at 1 mg/kg b.i.d. 3. Losartan 50 mg p.o. b.i.d. HISTORY OF PRESENT ILLNESS/HOSPITAL COURSE: The patient is a 63-year-old male with past medical history significant for recent DVT and right lower extremity that was treated with six months of Eliquis, discontinued approximately two months prior and hypertension, presents to the ED for evaluation of three days of shortness of breath. The patient states that he is currently trained walking 15 to 20 miles per day with a weighted rucksack. When he noticed beginning feeling acutely short of breath, this was not relieved by rest or adequate p.o. hydration and was not accompanied by any other symptoms, chest pain, nausea, vomiting, or presyncope. The patient states that he returned home and rested for two days. He did feel short of breath. Has prompting his presentation to the ED. Denies fever, chills, visual disturbances, new or worsening cough, chest pain, paroxysmal nocturnal dyspnea, peripheral edema, shortness of breath, nausea, vomiting, abdominal pain, dysuria, hematuria, bloody stools, recent surgeries, traumatic events, or steroid use. The patient states his last colonoscopy was several years prior and was essentially within normal limits. While in the ED, the patient received a CTA chest thorax which revealed bilateral PEs with right ventricular strain and a chest x-ray which showed no acute cardiopulmonary findings. The patient was given 1 L bolus of normal saline and started on therapeutic Lovenox at 1 mg/kg dosing b.i.d. The patient was subsequently transferred to the telemetry floor for further evaluation. Initial workup to the patient's unprovoked PEs revealed a coagulation panel significant for a D-dimer of 7.85, PT 14.1, INR 1.1, APTT 33.4, 5.8, protein C 74, protein S activity 63, antithrombin level 86, factor VIII activity 279. Additionally, the patient was found to have a random glucose greater than 200 and subsequent measurement of his hemoglobin A1c was approximately 8.0, indicating a diagnosis of diabetes. Following initiation of therapeutic Lovenox, the patient's condition continued to improve and he denied ongoing shortness of breath throughout the remainder of his hospitalization. Initial troponins were measured at 0.245 but subsequently downtrended, indicating a low suspicion for any cardiac related abnormalities associated with his shortness of breath and subsequent rise in troponin, most likely secondary to demand ischemia from his after mentioned pulmonary emboli. The patient was subsequently began on a bridge therapy to Eliquis with dosing as stated above. Additionally, the patient was educated on his new diagnosis of diabetes, but denied a diagnosis of diabetes despite adequate laboratory evaluation and stated that it was his decision to not pursue medication at this time. The patient was pressed further asking if he understood the consequences of uncontrolled diabetes and diabetes indicated increased risk for certain poor health outcomes such as myocardial infarction, CVA, etc., but the patient again denied a diagnosis of diabetes and stated that it was his decision not to take medications. As such, none was offered. However, a prescription for metformin was placed at the patient's desired pharmacy if he decided to change his mind. The patient was subsequently prepped for discharge and prior to discharge, vital signs were recorded as temperature 98.1, pulse 93, respirations 18, O2 saturation 96% on room air. Blood pressure was 150/99, elevated from 125/80, earlier that day. Additional laboratory analysis revealed an anticardiolipin IgG antibody within normal limits and anticardiolipin IgA antibody within normal limits and anticardiolipin IgM antibody within normal limits. DISPOSITION: Stable. DISCHARGE INSTRUCTIONS: 1. Location: Home. 2. Diet: Carbohydrate conscious. 3. Activity: No restrictions. 4. Followup: The patient was encouraged to follow up with [facility] in order to establish care as he previously had not done so in the past. Additionally, the patient was encouraged to follow up with Hematology pharmacy operations specialist within 6 to 10 weeks in order to discuss his elevated factor VIII levels and subsequent hypercoagulable state demonstrated by multiple DVTs and PEs that were unprovoked. Additionally, the patient was encouraged to establish care with primary care provider in the next 7 to 14 days as well as follow up with his poiser, Dr. Albert Del Rosario, within 3 to 4 weeks. Job ID: [id number]
[2019-11-14] MEDS ORDERED: Apixaban 5 MG TAB PO SCH (09:00)
== END 2019-11-07 13:25 | disposition home or self-care (01) | DRG 176 ==
LOC: ERS 07:13 → 2NO 11:17
PROVIDERS: ADMIT Family Medicine; ATTEND Family Medicine
DX: I26.99 Other pulmonary embolism without acute cor pulmonale (principal); I82.411 Acute embolism and thrombosis of right femoral vein; I82.432 Acute embolism and thrombosis of left popliteal vein; I24.8 Other forms of acute ischemic heart disease; Z66 Do not resuscitate; K58.9 Irritable bowel syndrome, unspecified; Z96.612 Presence of left artificial shoulder joint; Z96.611 Presence of right artificial shoulder joint; E11.65 Type 2 diabetes mellitus with hyperglycemia; R79.89 Other specified abnormal findings of blood chemistry; Z86.718 Personal history of other venous thrombosis and embolism; Z88.7 Allergy status to serum and vaccine; Z91.018 Allergy to other foods; Z79.899 Other long term (current) drug therapy; Z79.82 Long term (current) use of aspirin
CPT/HCPCS: 36415; 36416; 71045; 71275; 80053; 80061; 81240; 81241; 82550; 82553; 82565; 83036; 83090; 83690; 83880; 84484; 85025; 85240; 85300; 85303; 85305; 85307; 85379; 85598; 85610; 85730; 86147; 93005; 93306; 93970; 96372; J1650; Q9967

== ENCOUNTER 2021-10-28 14:53 | Emergency (ER) | payer MEDICARE, OTHER ==
[2021-10-28] MEDS ORDERED: Ketorolac Tromethamine 30 MG/ML VIAL ONE (15:52)
[2021-10-28] MEDS ORDERED: Bupivacaine 0.25% 10 ML VIAL ONE (16:17)
== END 2021-10-28 16:48 | disposition home or self-care (01) ==
LOC: ERS 14:53
DX: M25.562 Pain in left knee (principal); M25.462 Effusion, left knee; I10 Essential (primary) hypertension; E11.9 Type 2 diabetes mellitus without complications; E66.9 Obesity, unspecified; X58.XXXA Exposure to other specified factors, initial encounter; Y93.31 Activity, mountain climbing, rock climbing and wall climbing; Z68.45 Body mass index [BMI] 70 or greater, adult; Z86.711 Personal history of pulmonary embolism
CPT/HCPCS: 96372; J1040; J1885; S0020

== ENCOUNTER 2023-09-08 11:51 | Outpatient (CLI) | payer MEDICARE | END 2023-09-08 11:52 | disposition home or self-care (01) | LOC: LABBT 11:51 | PROVIDERS: ATTEND Orthopaedic Surgery | DX: Z01.818 Encounter for other preprocedural examination (principal); M17.0 Bilateral primary osteoarthritis of knee; I70.0 Atherosclerosis of aorta; Z98.890 Other specified postprocedural states | CPT/HCPCS: 71046; 93005; 93010 ==

== ENCOUNTER 2023-09-12 05:44 | Observation (INO) | payer MEDICARE ==
[2023-09-08 13:45] VITALS: BMI 27.2
[2023-09-08 15:19] LABS: #Basophils 0.1 10x3/uL (0.0-0.2); #Eosinphils 0.5 10x3/uL (0.0-0.5); #Monocytes 0.9 10x3/uL (0.0-1.1); #Neutrophils 5.5 10x3/uL (1.5-8.4); %Basophils 0.9 % (0.0-2.0); %Eosinophils 4.8 % (0.0-6.0); %Lymphocytes 25.3 % (18.0-47.0); %Monocytes 9.3 % (0.0-10.0); %Neutrophils 58.3 % (40.0-75.0); Hematocrit 37.3 % (38.8-50.0); Mean Corpuscular HGB CONC 34.9 g/dL (32.0-36.0); Mean Corpuscular Hemoglobin 31.8 pg (27.0-33.0); Mean Corpuscular Volume 91.2 fl (81.2-95.1); Mean Platelet Volume 10.3 fl (7.4-10.4); Platelet Count 195 10x3/uL (150-450); RBC Distribution Width 12.1 % (11.5-14.5); Red Blood Cell (RBC) Count 4.09 10x6/uL (4.32-5.72); White Blood Cell (WBC) Count 9.4 10x3/uL (3.5-10.5)
[2023-09-08 15:31] LABS: Bilirubin Neg (Negative); Blood, Urine Negative (Negative); Glucose, Urine (Dipstick) Normal (Negative); Ketone, Urine Negative (Negative); Leukocyte Negative (Negative); Nitrite Negative (Negative); Protein, Urine (Dipstick) Negative (Neg-Trace); Urobilinogen Normal mg/dL (Less than 2)
[2023-09-08 15:33] LABS: Clarity Clear (Clear)
[2023-09-08 15:35] LABS: Prothrombin Time 10.9 sec (9.5-12.1)
[2023-09-08 15:49] LABS: Anion Gap 12 mmol/L (10-20); BUN (Urea Nitrogen) 15 mg/dL (8.4-25.7); Calc. Creatinine Clearance 0 mL/min (70-130); Calcium 9.1 mg/dL (7.8-10.44); Carbon Dioxide 26 mmol/L (23-31); Chloride 107 mmol/L (98-107); Estimated GFR 89; Glucose 110 mg/dL (80-115); Sodium 141 mmol/L (136-145)
[2023-09-12] MEDS ORDERED: Sodium Chloride 0.9% 100 ML ONE ×3 (06:04→09:54)
[2023-09-12] MEDS ORDERED: Tranexamic Acid 1,000 MG/10 ML VIAL ONE ×2 (06:04→09:54)
[2023-09-12] MEDS ORDERED: Vancomycin (BATCH) 1.5 GM/300 ML BAG ONE (06:05)
[2023-09-12] MEDS ORDERED: PROPOFOL 20 ML ONE ×2 (06:18→07:13)
[2023-09-12] MEDS ORDERED: fentaNYL PF 100 MCG/2 ML SYRINGE ONE ×2 (06:18→07:46)
[2023-09-12] MEDS ORDERED: Midazolam HCl 2 mg/2 ml Vial ONE (06:18)
[2023-09-12] MEDS ORDERED: Lidocaine 1% PF 5 ML VIAL ONE (06:19)
[2023-09-12] MEDS ORDERED: Ondansetron PF 4 MG/2 ML Vial ONE (06:19)
[2023-09-12] MEDS ORDERED: Dexamethasone 20 MG/5 ML VIAL ONE (06:19)
[2023-09-12] MEDS ORDERED: Lidocaine 2% 6 ML (Jelly) SYR ONE (06:23)
[2023-09-12] MEDS ORDERED: Promethazine HCl 25 MG/ML VIAL IM PRN ×3 (06:41→09:36)
[2023-09-12] MEDS ORDERED: Ondansetron HCl/PF 4 MG/2 ML Vial IVP PRN (06:41)
[2023-09-12] MEDS ORDERED: HYDROmorphone 2 MG/ML VIAL SLOW IVP PRN (06:41)
[2023-09-12] MEDS ORDERED: Bupivacaine 0.25% HCL 30 ML VIAL ONE ×2 (06:47→07:17)
[2023-09-12] MEDS ORDERED: methylPREDNISolone Acetate 40 mg/ml Vial ONE (06:47)
[2023-09-12] MEDS ORDERED: Lidocaine 1% (PF) 30 ML VIAL ONE ×2 (06:47→06:57)
[2023-09-12] MEDS ORDERED: CEFAZOLIN 2 GM VIAL ONE (06:57)
[2023-09-12] MEDS ORDERED: Bupivacaine HCl 0.5%/Epinephrine 1:200,000/PF 30 ml Vial ONE (07:00)
[2023-09-12] MEDS ORDERED: PHENYLEPHRINE-NS 100 MCG/ML 10 ML SYRINGE ONE (07:16)
[2023-09-12] MEDS ORDERED: fentaNYL 50 mcg/mL 1 mL Vial SLOW IVP PRN (07:39)
[2023-09-12] MEDS ORDERED: Ropivacaine 0.2% 550 ML 550 ML NERVE BLCK SCH (07:45)
[2023-09-12] MEDS ORDERED: Ondansetron PF 4 MG/2 ML Vial IVP PRN ×2 (07:45→09:36)
[2023-09-12] MEDS ORDERED: traMADol HCl 50 MG TAB PO PRN ×2 (07:45)
[2023-09-12] MEDS ORDERED: Zolpidem Tartrate 5 MG TAB PO PRN ×2 (07:45→09:36)
[2023-09-12] MEDS ORDERED: HYDROcodone/Acetaminophen 10/325 mg Tablet PO PRN (07:45)
[2023-09-12] MEDS ORDERED: Bupivacaine PF 0.5% 30 ML VIAL ONE (08:19)
[2023-09-12] MEDS ORDERED: diphenhydrAMINE 25 MG CAP PO PRN (09:36)
[2023-09-12] MEDS ORDERED: Acetaminophen 325 MG TAB PO PRN (09:36)
[2023-09-12] MEDS: Sodium Chloride 0.9% 1,000 ML IV SCH (09:45)
[2023-09-12] MEDS ORDERED: Tranexamic Acid 1,000 MG in Sodium Chloride 0.9% 100 ML IVPB SCH (09:45)
[2023-09-12] MEDS ORDERED: fentaNYL 50 mcg/mL 1 mL Vial ONE ×3 (09:45→10:43)
[2023-09-12] MEDS ORDERED: hydrALAZINE 20 MG/ML VIAL ONE (10:32)
[2023-09-12] MEDS ORDERED: Ketorolac Tromethamine 30 MG (1 mL) VIAL ONE (11:57)
[2023-09-12] MEDS: Ketorolac Tromethamine 30 MG (1 mL) VIAL IVP SCH (11:59)
[2023-09-12] MEDS: CEFAZOLIN 2 GM in Sodium Chloride 0.9% 100 ML IVPB SCH (14:02)
[2023-09-12] MEDS: HYDROcodone/Acetaminophen 10/325 mg Tablet PO PRN (14:08)
[2023-09-12] MEDS: Vancomycin (BATCH) 1.5 GM in Premix 1 BAG IVPB SCH (17:44)
[2023-09-12] MEDS ORDERED: Vancomycin 1.5 GM in Sodium Chloride 0.9% 250 ML 300 ML IVPB SCH (18:00)
[2023-09-12] MEDS ORDERED: Non-Formulary Item 1 EACH (Zolpidem Tartrate [Ambien] 10 MG Tablet) PO SCH (21:00)
[2023-09-12] MEDS ORDERED: Non-Formulary Item 1 EACH (Celecoxib [Celebrex] 200 MG Capsule) PO SCH (21:00)
[2023-09-12] MEDS ORDERED: Zolpidem Tartrate 5 MG TAB PO SCH (21:00)
[2023-09-12] MEDS ORDERED: Non-Formulary Item 1 EACH (Ascorbate Calcium [Vitamin C] 500 MG Tablet) PO SCH (21:00)
[2023-09-12] MEDS: Aspirin 81 mg Enteric Coated Tablet PO SCH (21:53)
[2023-09-12] MEDS: CeleCOXIB 100 MG CAP PO SCH (21:53)
[2023-09-12] MEDS: Ascorbic Acid 500 mg Chewable Tablet PO SCH (21:53)
[2023-09-12] MEDS: Senokot S 8.6-50 MG TAB PO SCH (21:54)
[2023-09-12] MEDS: metFORMIN 500 MG TAB PO SCH (21:54)
[2023-09-12] MEDS: Ferrous Gluconate 324 MG TAB PO SCH (21:54)
[2023-09-13 07:44] VITALS: BP 157/86; TEMP 98.4
[2023-09-13] MEDS: Atorvastatin Calcium 20 MG TAB PO SCH (08:51)
[2023-09-13] MEDS: Apixaban 5 MG TAB PO SCH (08:51)
[2023-09-13] MEDS: Losartan 25 MG TAB PO SCH (08:52)
[2023-09-13] MEDS: Multivitamin W/ Minerals 1 TAB PO SCH (08:52)
[2023-09-13] MEDS: Cyanocobalamin (Vitamin B-12) 1,000 MCG TAB PO SCH (08:52)
[2023-09-13] MEDS ORDERED: Non-Formulary Item 1 EACH (Losartan Potassium [Losartan Potassium] 50 MG Tablet) PO SCH (09:00)
[2023-09-13] MEDS ORDERED: CHROMIUM PO SCH (09:00)
[2023-09-13] MEDS ORDERED: CHROMIUM AMINO ACID CHELATE PO SCH (09:00)
== END 2023-09-13 11:30 | disposition home or self-care (01) ==
LOC: SDC 05:44 → SURG B 13:08
PROVIDERS: ADMIT Orthopaedic Surgery; ATTEND Orthopaedic Surgery
DX: M17.0 Bilateral primary osteoarthritis of knee (principal); G47.00 Insomnia, unspecified; Z98.890 Other specified postprocedural states; Z79.899 Other long term (current) drug therapy; Z79.84 Long term (current) use of oral hypoglycemic drugs; Z88.7 Allergy status to serum and vaccine; Z91.011 Allergy to milk products; Z86.718 Personal history of other venous thrombosis and embolism; Z01.818 Encounter for other preprocedural examination; I70.0 Atherosclerosis of aorta
CPT/HCPCS: 20610; 27447; 97110; 97116; A4306; C1713; C1776; J0360; J3010; J3370; 80048; 81003; 85025; 85610; 86850; 86900; 86901; 87081; J0665; J1030; J1100; J1885; J2001; J2250; J2405; J2704; J2795; J3490; J7050